=== PATIENT | male | born 2000 | race Caucasian/White ===

== ENCOUNTER 2023-09-11 04:36 | Inpatient (IN) | payer MEDICAID ==
[~2023-09-11] VITALS: Ht 185.4 cm; Wt 73.1 kg
[2023-09-11] MEDS ORDERED: HYDR50CA7 PO (04:48)
[2023-09-11] MEDS ORDERED: [UNRECOGNIZED DRUG - REMARK] PO (04:48)
[2023-09-11] MEDS ORDERED: LISD50CA4 PO (04:48)
[2023-09-11 05:24] LABS: BASOPHILS % (AUTO) 0.2 % (0.0-2.0); EOSINOPHILS % (AUTO) 0.7 % (1.0-6.0); HEMATOCRIT 47.1 % (41-53); HEMOGLOBIN 15.9 g/dL (13.5-17.5); LYMPHOCYTES # (AUTO) 2.4 K/uL (1.0-4.8); LYMPHOCYTES % (AUTO) 20.7 % (22.0-44.0); MEAN CORPUSCULAR HEMOGLOBIN 31.4 pg (26.0-34.0); MEAN CORPUSCULAR HGB CONC 33.7 G/dL (31.0-37.0); MEAN CORPUSCULAR VOLUME 93 fL (80-100); MONOCYTES % (AUTO) 8.6 % (2.0-9.0); NEUTROPHILS % (AUTO) 69.8 % (40.0-70.0); PLATELET COUNT (AUTO) 284 K/uL (150-450); RED BLOOD CELL COUNT(AUTO) 5.05 MIL/uL (4.50-5.90); RED CELL DISTRIBUTION WIDTH 13.6 % (11.5-14.5); WHITE BLOOD COUNT (AUTO) 11.5 K/uL (4.5-11.0)
[2023-09-11 05:31] LABS: ANION GAP 11 mmol/L (8-16); CALCIUM, TOTAL 8.9 mg/dL (8.8-10.5); CARBON DIOXIDE 22 mmol/L (22-29); CHLORIDE 104 mmol/L (98-107); CREATININE 0.91 mg/dL (0.60-1.30); GLOMERULAR FILTR. RATE CALC > 60 mL/min (>60); GLUCOSE,RANDOM 102 mg/dL (70-110); POTASSIUM 3.5 mmol/L (3.5-5.1); SODIUM SERUM 137 mmol/L (136-145); UREA NITROGEN, BLOOD 8 mg/dL (7-18)
[2023-09-11 05:37] LABS: ALANINE AMINOTRANSFERASE 60 U/L (12-78); ALBUMIN 4.3 g/dL (3.4-5.0); ALKALINE PHOSPHATASE 133 U/L (46-116); ASPARTATE AMINOTRANSFERASE 32 U/L (15-37); BILIRUBIN,TOTAL 0.5 mg/dL (0.1-1.0); TOTAL PROTEIN, SERUM 7.9 g/dL (6.4-8.2)
[2023-09-11 05:38] LABS: ALCOHOL, BLOOD (SERUM) 41 mg/dL (0-10)
[2023-09-11 06:02] LABS: COVID AG,FIA SOURCE NASAL SWAB
[2023-09-11] MEDS ORDERED: ZOLPIDEM TARTRATE 10 MG TABLET PO PRN (06:15)
[2023-09-11] MEDS ORDERED: HALOPERIDOL 5 MG TABLET PO PRN (06:15)
[2023-09-11 06:19] LABS: SARS-COV2 (COVID) ANTIGEN,FIA Negative (Negative)
[2023-09-11] MEDS: LORazepam 2 MG TABLET PO PRN (07:00)
[2023-09-11 10:13] VITALS: BP 113/72; PULSE 87; RESP 18; TEMP 97.6; O2SAT 99
[2023-09-11] MEDS ORDERED: PNEUMOCOCCAL VACCINE POLYVALENT 0.5 ML SYRINGE [PPSV23] IM. ONE (11:15)
[2023-09-11] MEDS ORDERED: ARIP20TA21 PO (11:19)
[2023-09-11] MEDS ORDERED: ESCI20TA37 PO (11:19)
[2023-09-11] MEDS ORDERED: LISD40CA4 PO (11:19)
[2023-09-11] MEDS ORDERED: MAG HYDROX/ALUMINUM HYD/SIMETH ES 30 ML SUSPENSION UDCUP PO PRN (14:00)
[2023-09-11] MEDS ORDERED: LOPERAMIDE HCL 2 MG CAPSULE PO PRN (14:00)
[2023-09-11] MEDS ORDERED: ONDANSETRON HCL 4 MG TABLET PO PRN (14:00)
[2023-09-11] MEDS ORDERED: ALBUTEROL SULFATE HFA 90 MCG/PUFF 8 GM INHALER IH PRN (14:00)
[2023-09-11] MEDS ORDERED: CloNIDine HCL 0.1 MG TABLET PO PRN (14:00)
[2023-09-11] MEDS ORDERED: ACETAMINOPHEN 325 MG TABLET PO PRN (14:00)
[2023-09-11] MEDS ORDERED: IBUPROFEN 400 MG TABLET PO PRN (14:00)
[2023-09-11] MEDS ORDERED: NICOTINE 14 MG/24 HOUR PATCH TD PRN (14:00)
[2023-09-11] MEDS ORDERED: GuaiFENesin/D-METHORPHAN [SUGAR-FREE] 200-20MG/10 ML SYRUP UDCUP PO PRN (14:00)
[2023-09-11] MEDS ORDERED: PETROLATUM,WHITE 28 GM JELLY TP PRN (14:00)
[2023-09-11] MEDS ORDERED: DOCUSATE SODIUM 100 MG CAPSULE PO PRN (14:00)
[2023-09-11] MEDS ORDERED: MAGNESIUM HYDROXIDE SUSPENSION 30 ML UDCUP PO PRN (14:00)
[2023-09-11] MEDS: ARIPiprazole 15 MG TABLET PO SCH (14:57)
[2023-09-11] MEDS: ESCITALOPRAM OXALATE 20 MG TABLET PO SCH (14:57)
[2023-09-11] MEDS: HydrOXYzine PAMOATE 50 MG CAPSULE PO SCH (17:07)
[2023-09-11 17:29] LABS: PH,URINE DRUG SCREEN 5.5 (5.0-8.0)
[2023-09-11 17:35] LABS: ALCOHOL, URINE DRUG SCREEN NEGATIVE (NEGATIVE); AMPHET/METH SCREEN,URINE POSITIVE (NEGATIVE); APPEARANCE,URINE HAZY (CLEAR); BARBITURATE SCREEN, URINE NEGATIVE (NEGATIVE); BENZODIAZEPINES SCREEN,URINE NEGATIVE (NEGATIVE); BILIRUBIN,URINE NEGATIVE (NEGATIVE); CANNABINOID SCREEN,URINE POSITIVE (NEGATIVE); COCAINE SCREEN,URINE NEGATIVE (NEGATIVE); COLOR,URINE YELLOW (YELLOW); GLUCOSE, URINE (UA) NEGATIVE (NEGATIVE); KETONES,URINE NEGATIVE (NEGATIVE); LEUKOCYTE ESTERASE ,URINE NEGATIVE (NEGATIVE); METHADONE SCREEN, URINE NEGATIVE (NEGATIVE); NITRATE,URINE NEGATIVE (NEGATIVE); OCCULT BLOOD,URINE NEGATIVE (NEGATIVE); OPIATE SCREEN,URINE NEGATIVE (NEGATIVE); PH,URINE 5.5 (5.0-8.0); PHENCYCLIDINE SCREEN,URINE NEGATIVE (NEGATIVE); PROTEIN,URINE 30-70 mg/dL (NEGATIVE); SPECIFIC GRAVITIY, URINE 1.025 (1.003-1.030); UROBILINOGEN,URINE <=1.0 mg/dL (<=1.0)
[2023-09-11] MEDS: TraZODone HCL 100 MG TABLET PO SCH (21:03)
[2023-09-11 23:17] VITALS: RESP 18
[2023-09-12 08:51] VITALS: BP 99/55; PULSE 83; RESP 18; TEMP 97.8; O2SAT 98
[2023-09-12] MEDS: ESCITALOPRAM OXALATE 20 MG TABLET PO SCH (09:04)
[2023-09-12] MEDS: HydrOXYzine PAMOATE 50 MG CAPSULE PO SCH ×2 (09:04→16:30)
[2023-09-12] MEDS: ARIPiprazole 15 MG TABLET PO SCH (09:04)
[2023-09-12 09:06] LABS: THYROID STIMULATING HORMONE 1.42 uIU/mL (0.36-3.74)
[2023-09-12] MEDS: TraZODone HCL 100 MG TABLET PO SCH (20:52)
[2023-09-12 22:27] VITALS: BP 105/65; PULSE 104; RESP 18; TEMP 97.7; O2SAT 97
[2023-09-13 08:24] LABS: CHOL/HDL RATIO 3.7 (4.2-7.3)
[2023-09-13 09:14] VITALS: BP 94/55; PULSE 88; RESP 18; TEMP 98.2; O2SAT 97
[2023-09-13] MEDS: HydrOXYzine PAMOATE 50 MG CAPSULE PO SCH ×2 (09:52→17:31)
[2023-09-13] MEDS: ESCITALOPRAM OXALATE 20 MG TABLET PO SCH (09:52)
[2023-09-13] MEDS: ARIPiprazole 15 MG TABLET PO SCH (09:52)
[2023-09-13] MEDS: ERYTHROMYCIN 0.5% 3.5 GM TUBE OPHTHALMIC OINTMENT OS SCH ×2 (12:21→17:31)
[2023-09-13] MEDS: TraZODone HCL 100 MG TABLET PO SCH (20:53)
[2023-09-13 21:17] VITALS: BP 110/70; PULSE 81; RESP 16; TEMP 98; O2SAT 98
[2023-09-14] MEDS: LORazepam 2 MG TABLET PO PRN (04:00)
[2023-09-14] MEDS: HydrOXYzine PAMOATE 50 MG CAPSULE PO SCH (09:45)
[2023-09-14] MEDS: ARIPiprazole 15 MG TABLET PO SCH (09:45)
[2023-09-14] MEDS: ESCITALOPRAM OXALATE 20 MG TABLET PO SCH (09:45)
[2023-09-14] MEDS: ERYTHROMYCIN 0.5% 3.5 GM TUBE OPHTHALMIC OINTMENT OS SCH (09:49)
[2023-09-14 09:58] VITALS: BP 97/67; PULSE 82; RESP 18; TEMP 97.6; O2SAT 100
[2023-09-14] MEDS ORDERED: ESCI20TA87 PO (10:26)
[2023-09-14] MEDS ORDERED: ARIP15TA27 PO (10:26)
[2023-09-14] MEDS ORDERED: TRAZ-257 PO (10:26)
[2023-09-14] MEDS ORDERED: HYDR50CA7 PO (10:26)
== END 2023-09-14 14:15 | disposition home or self-care (01) | DRG 754 ==
LOC: EMS 04:37 → 3EI 09:17
PROVIDERS: ADMIT Psychiatry & Neurology Psychiatry; ATTEND Psychiatry & Neurology Psychiatry
DX: F32.9 Major depressive disorder, single episode, unspecified (principal); R45.851 Suicidal ideations; G40.909 Epilepsy, unspecified, not intractable, without status epilepticus; F43.10 Post-traumatic stress disorder, unspecified; Z20.822 Contact with and (suspected) exposure to COVID-19; F90.9 Attention-deficit hyperactivity disorder, unspecified type; G47.00 Insomnia, unspecified; D72.829 Elevated white blood cell count, unspecified; Z87.891 Personal history of nicotine dependence; Z79.899 Other long term (current) drug therapy
CPT/HCPCS: 80053; 80061; 80307; 81003; 83036; 84443; 85025; 99285; G0480